=== PATIENT | female | born 1965 | race Caucasian/White ===

== ENCOUNTER → 2017-04-16 10:17 | Outpatient (CLI) | payer BC, SELFPAY ==
--- NOTE | 2017-04-16 10:26 | RAD_ITS ---
XR Pelvis 1 or 2 Views INDICATION: inflammatory polyarthropathy COMPARISON: None TECHNIQUE: Frontal view of the pelvis FINDINGS: The pelvis is intact and there is normal alignment at the SI joints and symphysis pubis. There is normal alignment at the hips. Rounded calcified lesion in the pelvis may represent a uterine fibroid. RAD/Pelvis 1 or 2 Views IMPRESSION: The pelvis appears intact. at 0053 Reported and signed by: Claudia Richter MD Electronically Signed: Claudia Richter MD at 23:52 EST Tel , Service support ,
[2017-04-16 12:23] LABS: Absolute Lymphocyte Count 1.81 X10^3/ul (0.83-4.51); Absolute Neutrophil Count 3.7 X10^3/uL (2.0-7.7); Basophil# 0.03 X10^3/uL; Basophil% 0.5 % (0-1); Eosinophil# 0.12 X10^3/uL; Hematocrit 42.5 % (37-47); Hemoglobin 13.9 g/dl (12.0-15.0); Lymphocyte # 1.81 X10^3/ul (4.0); Lymphocyte % 30.1 % (19-41); Mean Corp Hgb Conc 32.7 g/gl (32-36); Mean Corpuscular Hgb 30.1 pg (27.0-32.0); Mean Platelet Vol. 10.2 fl (6.2-12.0); Monocyte% 6.6 % (0-10); Neutrophil # 3.65 X10^3/uL (2.7-7.7); Neutrophil % 60.6 % (47-70); Platelet Count 168 K/mm3 (150-450); RBC Distribution Width CV 13.3 % (11.6-14.6); Red Blood Count 4.62 M/mm3 (4.2-5.4)
[2017-04-16 12:35] LABS: POSITIVE COUNT NO; POSITIVE DIFFERENTIAL NO; POSITIVE MORPHOLOGY NO
[2017-04-16 12:45] LABS: ALB/GLOB Ratio 1.1 RATIO (0.9-2.4); AST(SGOT) 18 U/L (15-37); Alanine Aminotransfer ALT/SGPT 25 U/L (13-56); Albumin, Serum 3.8 g/dL (3.2-5.0); Alkaline Phosphatase 101 U/L (45-117); Anion Gap 10 (5-15); BUN 11 mg/dL (7-18); BUN/Creat Ratio 12.2 RATIO (10-20); Calcium,Total 8.5 mg/dL (8.5-10.1); Chloride 105 mmol/L (98-107); EST Glomerular Filtration Rate 69 mL/min (>60); Est Glom Filt Rate - Afr Amer 84 mL/min (>60); Globulin 3.6 g/dL (2.2-4.2); Glucose 73 mg/dL (74-106); Potassium 3.4 mmol/L (3.5-5.1); Protein, Total 7.4 g/dL (6.4-8.2); Rheumatoid Factor < 10.0 IU/mL (<15); Sodium Level 140 mmol/L (136-145)
[2017-04-17 15:32] LABS: ANTINUCLEAR ANTIBODIES DIRECT Negative (Negative)
[2017-04-24 08:54] LABS: CCP IgG Antibodies 8 units (0-19); HEPATITIS B SURFACE AG Negative (Negative); HLA B27 Negative (.); Hep B Surface Antibodies Non Reactive (.); Hep C Antibodies <0.1 s/co ratio (0.0-0.9)
== END ==
PROVIDERS: Family Provider Internal Medicine; PCP Internal Medicine; Visit Provider Internal Medicine Rheumatology
DX: M06.4 Inflammatory polyarthropathy (principal); M21.40 Flat foot [pes planus] (acquired), unspecified foot; K21.9 Gastro-esophageal reflux disease without esophagitis; E78.5 Hyperlipidemia, unspecified
CPT/HCPCS: 36415; 72170; 80053; 81374; 85025; 86038; 86200; 86431; 86706; 86803; 87340

== ENCOUNTER → 2017-10-10 14:52 | Outpatient (CLI) | payer BC, SELFPAY ==
[2017-10-10 14:58] LABS: Pathologist Comment May follow
[2017-10-10 16:00] LABS: RBC /Synovial Fluid 0.021 10^6/uL (0); Synovial Fld Mononuclear WBC % 69.7 %; Synovial Fld Polynuclear WBC % 30.3 %
[2017-10-10 17:30] LABS: Lymph 30 %
[2017-10-10 17:31] LABS: AUTO B FLUID DILUENT BKGD CT WBC <0.1 RBC <0.01 (W<.1,R<.01); Source- Body Fluid SYNOVIAL
[2017-10-10 17:32] LABS: Appearance /Synovial Fluid Cloudy (CLEAR); Color / Synovial Fluid Pink (Pale Yellow)
[2017-10-10 17:35] LABS: Synovial Fld Mononuclear WBC # 0.023 10^3/ul
[2017-10-10 17:45] LABS: Body Fluid QC Type(s) BF1Q,BF2Q
[2017-10-10 22:49] LABS: Other Cell /Synovial Fluid 70 %
[2017-10-11 14:22] LABS: Pathologist Review Reviewed
== END ==
PROVIDERS: Visit Provider Internal Medicine Rheumatology
DX: M06.4 Inflammatory polyarthropathy (principal); M21.40 Flat foot [pes planus] (acquired), unspecified foot; K21.9 Gastro-esophageal reflux disease without esophagitis; E78.5 Hyperlipidemia, unspecified; Z79.899 Other long term (current) drug therapy
CPT/HCPCS: 87070; 87075; 87205; 89050; 89051; 89060

== ENCOUNTER → 2018-12-18 11:51 | Outpatient (CLI) | payer BC, SELFPAY ==
--- NOTE | 2018-12-18 11:56 | RAD_ITS ---
STUDY: X-RAY - RIGHT KNEE REASON FOR EXAM: Increasing right knee pain. TECHNIQUE: 4 view(s) of the knee. COMPARISON: None. FINDINGS: There are bone tunnels in the distal femur and proximal tibia from anterior cruciate ligament reconstruction. Normal proximal tibiofibular articulation. There is moderate joint space narrowing of the medial femorotibial compartment and a small marginal osteophyte of the medial femoral condyle. Normal lateral femorotibial compartment. Normal patellofemoral articulation. The soft tissue structures are unremarkable. RAD/Knee 4 or More Views IMPRESSION: Arthrosis of the medial femorotibial compartment. Postoperative changes from anterior cruciate ligament reconstruction. Electronically Signed: Jeevan Soto MD at 14:36 EDT Tel , Service support ,
== END ==
PROVIDERS: Family Provider Internal Medicine; PCP Internal Medicine; Referring Provider Internal Medicine Rheumatology; Visit Provider Internal Medicine Rheumatology
DX: M17.11 Unilateral primary osteoarthritis, right knee (principal); M06.4 Inflammatory polyarthropathy; Z79.899 Other long term (current) drug therapy
CPT/HCPCS: 73564